=== PATIENT | female | born 1945 | race Caucasian/White ===

== ENCOUNTER 2020-11-02 10:10 | Outpatient (CLI) | payer MEDICARE, BC ==
[2020-11-02] VITALS (14 sets, daily range): BP systolic 70–134; BP diastolic 25–78
== END 2020-11-02 23:59 | disposition home or self-care (01) ==
LOC: CARD DIAG 10:10
PROVIDERS: ATTEND Internal Medicine Interventional Cardiology
DX: I95.1 Orthostatic hypotension (principal); R42 Dizziness and giddiness
CPT/HCPCS: 93660